=== PATIENT | female | born 1990 | race Caucasian/White ===

== ENCOUNTER 2017-02-25 07:19 | Emergency (ER) | payer SELFPAY ==
[~2017-02-25] VITALS: Ht 175.3 cm; Wt 49.9 kg
[2017-02-25] MEDS ORDERED: 0.9 % SODIUM CHLORIDE 10 ML DISP.SYRIN. IV PRN (07:30)
[2017-02-25 08:00] LABS: BASO % 1 % (0-3); EOS # 0.1 x10^3/uL (0.0-0.7); EOS % 1 % (0-3); HEMATOCRIT 41.3 % (36.0-47.0); HEMOGLOBIN 13.8 g/dL (12.0-15.5); LYMPH # 2.1 x10^3/uL (1.0-4.8); LYMPH % 25 % (24-48); MEAN CORPUSCULAR HEMOGLOBIN 30 pg (25-35); MEAN CORPUSCULAR HGB CONC 33 g/dL (31-37); MEAN CORPUSCULAR VOLUME 89 fL (79-100); MONO # 0.6 x10^3/uL (0.0-1.1); MONO % 7 % (0-9); NEUT # 5.8 x10^3uL (1.8-7.7); NEUT % 68 % (31-73); PLATELET COUNT 163 x10^3/uL (140-400); RED BLOOD COUNT 4.64 x10^6/uL (3.50-5.40); RED CELL DISTRIBUTION WIDTH 12.8 % (11.5-14.5); WHITE BLOOD COUNT 8.6 x10^3/uL (4.0-11.0)
[2017-02-25] MEDS ORDERED: IV NORMAL SALINE 1,000ML 1,000 ML IV SCH (08:00)
[2017-02-25 08:01] LABS: CALCIUM 8.6 mg/dL (8.5-10.1); CREATININE 0.8 mg/dL (0.6-1.0); GFR 88.1; POTASSIUM 3.3 mmol/L (3.5-5.1)
[2017-02-25] MEDS ORDERED: ONDANSETRON PF 4 MG/2 ML VIAL. IV ONE (08:20)
--- NOTE | 2017-02-25 08:42 | PHYS DOC ---
Past History Past Medical History: No Pertinent History Past Surgical History: No Surgical History Alcohol Use: None Drug Use: None Adult General Chief Complaint Chief Complaint: NAUSEA/VOMITING/DIARRHEA HPI HPI This is a pleasant 26-year-old female G 1998 whose last missed period was last year. She's been off of her Depo-Provera from us a urine still has not had a menstrual period. Patient presents today with abdominal pain as per lambert for almost a month in the lower suprapubic area without vaginal discharge or bleeding. She developed increased nausea and vomiting with meals in the last 2 weeks. She feels weak and dizzy secondary to the fact that she is not able to eat any food. She denies any back pain, fevers, chills, diarrhea or loose stool. She denies any dysuria urgency or frequency or other UTI symptoms. She's had a thin whitish discharge that is normal for her that is not changed. She admits she's had a history of sexual transmitted diseases gonorrhea and chlamydia several years ago and 2 episodes of BV. She is sexually active with one partner. She's had no sick contacts at home no trauma no travel outside the country. Differential diagnosis for lower abdominal pain includes but not limited to Acute pancreatitis. Appendicitis. Acute hepatitis. Peptic ulcer disease. Nonulcer dyspepsia. Irritable bowel disease. Functional gallbladder disorder. Sphincter of Oddi dysfunction. Diseases of the right kidney. Right-sided pneumonia. Vmvv-Ldzy-Asdpbx syndrome Subhepatic or intraabdominal abscess. Perforated viscus. Cardiac ischemia. Black spider envenomation Review of Systems Review of Systems Constitutional: Denies fever or chills [] Eyes: Denies change in visual acuity, redness, or eye pain [] HENT: Denies nasal congestion or sore throat [] Respiratory: Denies cough or shortness of breath [] Cardiovascular: No additional information not addressed in HPI [] GI: From early complains of lower abdominal pain with nausea and vomiting without diarrhea or bloody stools. : Denies dysuria or hematuria she has been complaining of a slight whitish discharge which is not new. Musculoskeletal: Denies back pain or joint pain [] Integument: Denies rash or skin lesions [] Neurologic: Denies headache, focal weakness or sensory changes [] Endocrine: Denies polyuria or polydipsia [] Current Medications Current Medications Current Medications Medications (Trade) Dose Ordered Sig/Devorah Start Time Stop Time Status Last Admin Dose Admin Ondansetron HCl (Zofran) 4 mg 1X ONCE 02/25/17 08:20 02/25/17 08:21 DC Sodium Chloride (Normal Saline Flush) 10 ml QSHIFT PRN 02/25/17 07:30 Allergies Allergies Allergies Coded Allergies Type Severity Reaction Last Updated Verified No Known Drug Allergies 02/25/17 No Physical Exam Physical Exam Auto signs noted within normal limits. Constitutional: Well developed, well nourished, no acute distress, non-toxic appearance. [] HENT: Normocephalic, atraumatic, bilateral external ears normal, oropharynx moist, no oral exudates, nose normal. [] Eyes: PERRLA, EOMI, conjunctiva normal, no discharge. [] Neck: Normal range of motion, no tenderness, supple, no stridor. [] Cardiovascular:Heart rate regular rhythm, no murmur [] Lungs & Thorax: Bilateral breath sounds clear to auscultation [] Abdomen: Bowel sounds normal, soft, no tenderness, no masses, no pulsatile masses. Patient's abdomen demonstrates no guarding rebound or organomegaly. No Mesa's sign and no McBurney's point tenderness to palpation. exam: Normal external female genitalia with no active vaginal lesions. She is a thin whitish discharge that is now not malodorous. There is no CMT no adnexal fullness or tenderness to palpation no active bleeding or discharge or tissue within the vaginal vault. Skin: Warm, dry, no erythema, no rash. [] Back: No tenderness, no CVA tenderness. [] Extremities: No tenderness, no cyanosis, no clubbing, ROM intact, no edema. [] Neurologic: Alert and oriented X 3, normal motor function, normal sensory function, no focal deficits noted. [] Psychologic: Affect normal, judgement normal, mood normal. [] Current Patient Data Vital Signs Vital Signs Date Time Temp Pulse Resp B/P (MAP) Pulse Ox O2 Delivery O2 Flow Rate FiO2 02/25/17 08:12 98.0 62 16 120/69 (86) 98 Room Air Lab Results Laboratory Tests Test 02/25/17 07:42 02/25/17 08:00 02/25/17 08:09 White Blood Count 8.6 x10^3/uL (4.0-11.0) Red Blood Count 4.64 x10^6/uL (3.50-5.40) Hemoglobin 13.8 g/dL (12.0-15.5) Hematocrit 41.3 % (36.0-47.0) Mean Corpuscular Volume 89 fL (79-100) Mean Corpuscular Hemoglobin 30 pg (25-35) Mean Corpuscular Hemoglobin Concent 33 g/dL (31-37) Red Cell Distribution Width 12.8 % (11.5-14.5) Platelet Count 163 x10^3/uL (140-400) Neutrophils (%) (Auto) 68 % (31-73) Lymphocytes (%) (Auto) 25 % (24-48) Monocytes (%) (Auto) 7 % (0-9) Eosinophils (%) (Auto) 1 % (0-3) Basophils (%) (Auto) 1 % (0-3) Neutrophils # (Auto) 5.8 x10^3uL (1.8-7.7) Lymphocytes # (Auto) 2.1 x10^3/uL (1.0-4.8) Monocytes # (Auto) 0.6 x10^3/uL (0.0-1.1) Eosinophils # (Auto) 0.1 x10^3/uL (0.0-0.7) Basophils # (Auto) 0.0 x10^3/uL (0.0-0.2) Maternal Serum HCG Beta Subunit 61177 mIU/mL (0-6) H Sodium Level 137 mmol/L (136-145) Potassium Level 3.3 mmol/L (3.5-5.1) L Chloride Level 101 mmol/L (98-107) Carbon Dioxide Level 24 mmol/L (21-32) Anion Gap 12 (6-14) Blood Urea Nitrogen 12 mg/dL (7-20) Creatinine 0.8 mg/dL (0.6-1.0) Estimated GFR (Cockcroft-Gault) 88.1 Glucose Level 75 mg/dL (70-99) Calcium Level 8.6 mg/dL (8.5-10.1) Lipase 82 U/L (73-393) Urine Collection Type Unknown Urine Color Fernanda Urine Clarity Cloudy Urine pH 6.0 Urine Specific [place] >=1.030 Urine Protein 30 mg/dl (NEG-TRACE) Urine Glucose (UA) Neg mg/dL (NEG) Urine Ketones (Stick) >=160 mg/dL (NEG) Urine Blood Neg (NEG) Urine Nitrite Neg (NEG) Urine Bilirubin Neg (NEG) Urine Urobilinogen Dipstick 0.2 mg/dL (0.2 mg/dL) Urine Leukocyte Esterase Neg (NEG) Urine RBC Rare /HPF (0-2) Urine WBC Rare /HPF (0-4) Urine Squamous Epithelial Cells Many /LPF Urine Bacteria Many /HPF (0-FEW) Urine Mucus Marked /LPF POC Urine HCG, Qualitative hcg positive (Negative) Laboratory Tests Test 02/25/17 07:42 02/25/17 08:09 White Blood Count 8.6 x10^3/uL (4.0-11.0) Red Blood Count 4.64 x10^6/uL (3.50-5.40) Hemoglobin 13.8 g/dL (12.0-15.5) Hematocrit 41.3 % (36.0-47.0) Mean Corpuscular Volume 89 fL (79-100) Mean Corpuscular Hemoglobin 30 pg (25-35) Mean Corpuscular Hemoglobin Concent 33 g/dL (31-37) Red Cell Distribution Width 12.8 % (11.5-14.5) Platelet Count 163 x10^3/uL (140-400) Neutrophils (%) (Auto) 68 % (31-73) Lymphocytes (%) (Auto) 25 % (24-48) Monocytes (%) (Auto) 7 % (0-9) Eosinophils (%) (Auto) 1 % (0-3) Basophils (%) (Auto) 1 % (0-3) Neutrophils # (Auto) 5.8 x10^3uL (1.8-7.7) Lymphocytes # (Auto) 2.1 x10^3/uL (1.0-4.8) Monocytes # (Auto) 0.6 x10^3/uL (0.0-1.1) Eosinophils # (Auto) 0.1 x10^3/uL (0.0-0.7) Basophils # (Auto) 0.0 x10^3/uL (0.0-0.2) Sodium Level 137 mmol/L (136-145) Potassium Level 3.3 mmol/L (3.5-5.1) L Chloride Level 101 mmol/L (98-107) Carbon Dioxide Level 24 mmol/L (21-32) Anion Gap 12 (6-14) Blood Urea Nitrogen 12 mg/dL (7-20) Creatinine 0.8 mg/dL (0.6-1.0) Estimated GFR (Cockcroft-Gault) 88.1 Glucose Level 75 mg/dL (70-99) Calcium Level 8.6 mg/dL (8.5-10.1) Lipase 82 U/L (73-393) POC Urine HCG, Qualitative hcg positive (Negative) EKG EKG [] Radiology/Procedures Radiology/Procedures [] Course & Med Decision Making Course & Med Decision Making Pertinent Labs and Imaging studies reviewed. (See chart for details) upon presentation pressure patient presents with a month-long history. Repeated pain and mild vaginal discharge. Discharge does not look like PID or cervicitis. At this point time patient needs to have ectopic ruled out as the cause of her abdominal pain. Her test is positive on arrival and her white blood cell count is normal at 8.6. At this point she'll have a pelvic ultrasound completed as well as a beta hCG and a blood typing done. Patient is hemodynamics stable and minimal pain she'll be offered fluids and Zofran as her labs are pending. Patient's ultrasound demonstrates clear IUP with her Quant greater and 43,000. Patient is felt markedly better with fluids and antiemetics here in the emergency department pelvic exam is unremarkable. Urinalysis shows some bacteria and some mild white blood cells she will be treated empirically as a UTI. Impression: Threatened miscarriage, UTI, subchorionic hemorrhage., Nausea and vomiting Disposition: PCP follow-up APPLICATION SECURITY ENGINEER evaluation. [] Dragon Disclaimer Dragon Disclaimer This chart was dictated in whole or in part using Voice Recognition software in a busy, high-work load, and often noisy Emergency Department environment. It may contain unintended and wholly unrecognized errors or omissions. Departure Departure: Impression: Primary Impression: Threatened miscarriage Additional Impressions: Nausea and vomiting UTI (urinary tract infection) Disposition: 01 HOME, SELF-CARE Condition: IMPROVED Referrals: PCP,NO (PCP) Patient Instructions: Nausea and Vomiting, Threatened Miscarriage, Urinary Tract Infection Additional Instructions: Please return for any new or increasing symptoms or if you have any questions concerns. I would advise a follow-up your APPLICATION SECURITY ENGINEER for reevaluation and continued management of your second . Scripts Acetaminophen (TYLENOL) 325 Mg Tablet 1-2 TAB PO QID, #30 TAB 2 Refills Prov: YRN SOSA MD 02/25/17 Ondansetron (ZOFRAN ODT) 8 Mg Tab.rapdis 4 MG PO TID for 10 Days Prov: YRN SOSA MD 02/25/17 Nitrofurantoin Monohyd/M-Cryst (MACROBID 100 MG CAPSULE) 100 Mg Capsule 1 CAP PO BID, #20 CAP Prov: YRN SOSA MD 02/25/17 Problem Qualifiers YRN SOSA MD Feb 25, 2017 08:41
[2017-02-25 09:00] LABS: BILIRUBIN,URINE NEG (NEG); CLARITY,URINE CLOUDY; COLOR,URINE AMBER; GLUCOSE,URINE NEG (NEG); NITRITE,URINE NEG (NEG); RBC,URINE RARE /HPF (0-2); UROBILINOGEN,URINE 0.2 mg/dL (0.2 mg/dL); WBC,URINE RARE /HPF (0-4)
[2017-02-25 09:01] LABS: BACTERIA,URINE MANY /HPF (0-FEW); SQUAMOUS EPITHELIAL CELL,UR MANY /LPF
--- NOTE | 2017-02-25 10:10 | RAD ---
Obstetrical ultrasound, 02/25/2017: History: Nausea and vomiting Transabdominal and transvaginal scans were obtained. The uterus contains a single gestational sac. The gestational sac contains a pole demonstrating a crown-rump length of 5 mm. This suggests a gestational age of 6 weeks and 2 days yielding a sonographic EDC of 10/17/2017. activity and heart motion are present. The heart rate was 118 bpm. There is an 8 x 19 mm elongated hypoechoic area along the margin of the gestational sac compatible with a small subchorionic hemorrhage. The ovaries are unremarkable. No free fluid is evident in the pelvis. IMPRESSION: 1. Single viable intrauterine fetus of 6-7 weeks gestational age. 2. Small subchorionic hemorrhage.
[2017-02-25] MEDS ORDERED: ACET325T9 PO (10:33)
[2017-02-25] MEDS ORDERED: ONDA8TAB12 PO (10:33)
[2017-02-25] MEDS ORDERED: NITR100C62 PO (10:33)
[2017-02-25 17:44] VITALS: BP 158/65
[2017-02-28 17:09] LABS: CHLAMYDIA PROBE Negative (Negative)
== END 2017-02-25 10:48 | disposition home or self-care (01) ==
LOC: ER 07:19
DX: O20.0 Threatened abortion (principal); O23.41 Unspecified infection of urinary tract in pregnancy, first trimester; R11.2 Nausea with vomiting, unspecified; Z3A.01 Less than 8 weeks gestation of pregnancy
CPT/HCPCS: 36415; 76801; 76817; 80048; 81001; 81025; 83690; 84702; 85027; 86900; 86901; 87086; 87491; 87591; 96361; 96374; 99285; J2405; Q0111; J7030

== ENCOUNTER 2017-03-11 09:34 | Emergency (ER) | payer OTHER ==
[~2017-03-11] VITALS: Ht 175.3 cm; Wt 53.1 kg
[~2017-03-11 09:34] MED LIST: ACET325T9 PO; NITR100C62 PO; ONDA8TAB12 PO
--- NOTE | 2017-03-11 10:16 | ED.ADGEN ---
Past History Past Medical History: No Pertinent History Past Surgical History: No Surgical History Alcohol Use: None Drug Use: None Adult General HPI HPI Patient is a 26-year-old woman, with an uncomplicated that occurred 5 years ago, who presents to the emergency department with complaint of persistent nausea and vomiting after running out of Zofran. Patient was seen in the emergency department last week, that time she was diagnosed with urinary tract infection, and found that she was with a single viable intrauterine , at roughly 6-7 weeks. Patient states that she has attempted to obtain an MOTOR VEHICLE LICENSE CLERK over the past week, and currently has an appointment to follow-up with an OB at [facility] next week. She states however that she cannot get in to see his physician sooner, after running out of Zofran yesterday has been persistently nauseous and hadd vomiting this morning. She states her symptoms were previously controlled with the Zofran, which was taking about twice a day. She states "I just can't wait until then". Patient is unclear if she took all of her antibiotics for the urine tract infection which she was prescribed previously. She denies any urinary complaints, any discharge or drainage vagina, any vaginal bleeding, any concerns for sexually transmitted infections, any injuries to the abdomen, abdominal pain, back pain or flank pain , any weakness, numbness, tingling, chest pain, shortness of breath, swelling extremities or other complaints. States that she is taking vitamins. Review of Systems Review of Systems Constitutional: Denies fever or chills [] Eyes: Denies change in visual acuity, redness, or eye pain [] HENT: Denies nasal congestion or sore throat [] Respiratory: Denies cough or shortness of breath [] Cardiovascular: No additional information not addressed in HPI [] GI: Denies abdominal pain, bloody stools or diarrhea, positive for nausea and vomiting. [] : Denies dysuria or hematuria [] Musculoskeletal: Denies back pain or joint pain [] Integument: Denies rash or skin lesions [] Neurologic: Denies headache, focal weakness or sensory changes [] Endocrine: Denies polyuria or polydipsia [] Current Medications Current Medications Current Medications Medications (Trade) Dose Ordered Sig/Devorah Start Time Stop Time Status Last Admin Dose Admin Cephalexin HCl (Keflex) 500 mg 1X ONCE 03/11/17 12:00 03/11/17 12:01 03/11/17 11:59 500 MG Ondansetron HCl (Zofran Odt) 4 mg 1X ONCE 03/11/17 10:45 03/11/17 10:46 DC 03/11/17 10:19 4 MG Allergies Allergies Allergies Coded Allergies Type Severity Reaction Last Updated Verified No Known Drug Allergies 02/25/17 No Physical Exam Physical Exam Constitutional: Well developed, well nourished, no acute distress, non-toxic appearance. [] HENT: Normocephalic, atraumatic, bilateral external ears normal, oropharynx moist, no oral exudates, nose normal. [] Eyes: PERRLA, EOMI, conjunctiva normal, no discharge. [] Neck: Normal range of motion, no tenderness, supple, no stridor. [] Cardiovascular:Heart rate regular rhythm, no murmur [] Lungs & Thorax: Bilateral breath sounds clear to auscultation, no wheezing, rhonchi, rales. No chest wall crepitus or tenderness. [] Abdomen: Bowel sounds normal, soft, no tenderness, no rebound, rigidity, no guarding, gravid abdomen, no masses, no pulsatile masses. [] Skin: Warm, dry, no erythema, no rash. [] Back: No tenderness, no CVA tenderness. [] Extremities: No tenderness, no cyanosis, no clubbing, ROM intact, no edema. [] Neurologic: Alert and oriented X 3, normal motor function, normal sensory function, no focal deficits noted. [] Psychologic: Affect normal, judgement normal, mood normal. [] Current Patient Data Vital Signs Vital Signs Date Time Temp Pulse Resp B/P (MAP) Pulse Ox O2 Delivery O2 Flow Rate FiO2 03/11/17 09:34 97.7 66 18 98 Room Air Lab Results Laboratory Tests Test 03/11/17 10:55 Urine Collection Type Unknown Urine Color Yellow Urine Clarity Cloudy Urine pH 8.0 Urine Specific [place] 1.015 Urine Protein Neg (NEG-TRACE) Urine Glucose (UA) Neg mg/dL (NEG) Urine Ketones (Stick) Neg mg/dL (NEG) Urine Blood Neg (NEG) Urine Nitrite Neg (NEG) Urine Bilirubin Neg (NEG) Urine Urobilinogen Dipstick 0.2 mg/dL (0.2 mg/dL) Urine Leukocyte Esterase Trace (NEG) Urine RBC Rare /HPF (0-2) Urine WBC 1-4 /HPF (0-4) Urine Squamous Epithelial Cells Many /LPF Urine Amorphous Sediment Present /HPF Urine Bacteria Many /HPF (0-FEW) Urine Mucus Mod /LPF EKG EKG Not indicated. [] Radiology/Procedures Radiology/Procedures Not indicated [] Course & Med Decision Making Course & Med Decision Making Pertinent Labs and Imaging studies reviewed. (See chart for details) Patient well-appearing, vital signs in the normal limits, complaining of nausea. She apparently has not filled prescription for previous antibiotic. Urinalysis obtained, reveals many bacteria, with no nitrates, however based on pressor status will treat. Patient received Zofran orally in the ED with good effect, states she is feeling much better, no further vomiting. She is tolerating by mouth fluids. Given first dose of Keflex in the ED without issue, and prescription for Keflex to be taken twice daily for the next 7 days. Instructed to follow-up with her MOTOR VEHICLE LICENSE CLERK as scheduled for a test of cure, also given clear and detailed return instructions with which she voiced understanding and agreement. Additionally patient is given prescription for Zofran to be used as needed as directed. Patient voiced understanding and agreement, discharged home in stable condition with plan and precautions and follow-up as above. Final Impression Final Impression [] Problems: Dragon Disclaimer Dragon Disclaimer This electronic medical record was generated, in whole or in part, using a voice recognition dictation system. Departure: Impression: Primary Impression: Urinary tract infection affecting Additional Impression: Nausea and vomiting Disposition: HOME, SELF-CARE Condition: IMPROVED Scripts Ondansetron Hcl (ZOFRAN) 4 Mg Tablet 4 MG PO PRN Q6-8HRS Y for NAUSEA, #20 Prov: SANDRA AVELAR DO 03/11/17 Cephalexin (KEFLEX) 500 Mg Capsule 1 CAP PO BID, #14 CAP Prov: SANDRA AVELAR DO 03/11/17 SANDRA AVELAR DO Mar 11, 2017 10:16
[2017-03-11] MEDS ORDERED: ONDANSETRON ODT 4 MG TAB.RAPDIS PO ONE (10:45)
[2017-03-11 11:22] LABS: AMORPHOUS SEDIMENT,UR PRESENT /HPF; BACTERIA,URINE MANY /HPF (0-FEW); BILIRUBIN,URINE NEG (NEG); CLARITY,URINE CLOUDY; COLOR,URINE YELLOW; GLUCOSE,URINE NEG (NEG); NITRITE,URINE NEG (NEG); RBC,URINE RARE /HPF (0-2); SQUAMOUS EPITHELIAL CELL,UR MANY /LPF; UROBILINOGEN,URINE 0.2 mg/dL (0.2 mg/dL)
[2017-03-11] MEDS ORDERED: ONDA4TAB7 PO (11:49)
[2017-03-11] MEDS ORDERED: CEPH-264 PO (11:49)
[2017-03-11] MEDS ORDERED: CEPHALEXIN 250 MG CAPSULE PO ONE (12:00)
[2017-03-11 12:02] VITALS: BP 103/53
== END 2017-03-11 12:04 | disposition home or self-care (01) ==
LOC: ER 09:34
DX: O23.41 Unspecified infection of urinary tract in pregnancy, first trimester (principal); Z3A.01 Less than 8 weeks gestation of pregnancy
CPT/HCPCS: 81001; 87086; 99284; Q0162

== ENCOUNTER 2018-06-10 19:35 | Emergency (ER) | payer OTHER ==
[~2018-06-10] VITALS: Ht 170.2 cm; Wt 53.1 kg
[~2018-06-10 19:35] MED LIST changes: +CEPH-264 PO; +ONDA4TAB7 PO
--- NOTE | 2018-06-10 19:43 | ED.ADGEN ---
Past History Past Medical History: No Pertinent History Past Surgical History: No Surgical History Alcohol Use: None Drug Use: None Adult General Chief Complaint Chief Complaint ".. My skin is itching..." [facility] HPI Patient is a 28 year old female who presents with new onset of rash and itching starting 4 days ago..... No history of changes in food, meds, soaps, exposures, or travel. She normally healthy. There is a history of possible change in detergents. Patient normally healthy. Up-to-date with vaccinations. Review of Systems Review of Systems Constitutional: Denies fever or chills [] Eyes: Denies change in visual acuity, redness, or eye pain [] HENT: Denies nasal congestion or sore throat [] Respiratory: Denies cough or shortness of breath [] Cardiovascular: No additional information not addressed in HPI [] GI: Denies abdominal pain, nausea, vomiting, bloody stools or diarrhea [] : Denies dysuria or hematuria [] Musculoskeletal: Denies back pain or joint pain [] Integument: Complains of pruritic rash Neurologic: Denies headache, focal weakness or sensory changes [] Endocrine: Denies polyuria or polydipsia [] All other systems were reviewed and found to be within normal limits, except as documented in this note. Family History Family History Noncontributory Current Medications Current Medications Current Medications Medications (Trade) Dose Ordered Sig/Devorah Start Time Stop Time Status Last Admin Dose Admin Acetaminophen (Tylenol) 1,000 mg 1X ONCE 06/10/18 20:00 06/10/18 20:05 DC 06/10/18 20:18 1,000 MG Albuterol Sulfate (Ventolin Hfa Inhaler) 2 puff 1X ONCE 06/10/18 20:00 06/10/18 20:05 DC 06/10/18 20:16 2 PUFF Famotidine (Pepcid) 20 mg 1X ONCE 06/10/18 20:15 06/10/18 20:16 DC 06/10/18 20:19 20 MG Ibuprofen (Motrin) 400 mg 1X ONCE 06/10/18 20:00 06/10/18 20:05 DC 06/10/18 20:17 400 MG Prednisone (Prednisone) 60 mg 1X ONCE 06/10/18 20:00 06/10/18 20:05 DC 06/10/18 20:18 60 MG Allergies Allergies Allergies Coded Allergies Type Severity Reaction Last Updated Verified No Known Drug Allergies 02/25/17 No Physical Exam Physical Exam Constitutional: Well developed, well nourished, elderly distress, non-toxic appearance. [] HENT: Normocephalic, atraumatic, bilateral external ears normal, oropharynx moist, no oral exudates, nose normal. [] Eyes: PERRLA, EOMI, conjunctiva normal, no discharge. [] Neck: Normal range of motion, no tenderness, supple, no stridor. [] Cardiovascular:Heart rate regular rhythm, no murmur [] Lungs & Thorax: Bilateral breath sounds clear to auscultation [] Abdomen: Bowel sounds normal, soft, no tenderness, no masses, no pulsatile masses. [] Skin: Warm, dry, , patchy erythemic rash. [] Back: No tenderness, no CVA tenderness. [] Extremities: No tenderness, no cyanosis, no clubbing, ROM intact, no edema. [] Neurologic: Alert and oriented X 3, normal motor function, normal sensory function, no focal deficits noted. [] Psychologic: Affect normal, judgement normal, mood normal. [] Current Patient Data Vital Signs Vital Signs Date Time Temp Pulse Resp B/P (MAP) Pulse Ox O2 Delivery O2 Flow Rate FiO2 06/10/18 20:25 88 22 114/71 (85) 98 Room Air 06/10/18 19:40 99.0 EKG EKG [] Radiology/Procedures Radiology/Procedures [] Course & Med Decision Making Course & Med Decision Making Pertinent Labs and Imaging studies reviewed. (See chart for details). Patient to try and identify cause of rash. Would return to previous detergent. Take Benadryl 25 mg 4 times a day. For now take prednisone 50 mg day for 5 days. Use MDI 2 puffs 4 times a day. Take Zantac 150 mg twice day. Follow-up primary care. Return if any concerns. [] Final Impression Final Impression 1. Ischemic rash-appears to be contact dermatitis Dragon Disclaimer Dragon Disclaimer This electronic medical record was generated, in whole or in part, using a voice recognition dictation system. TRUDY LUKE MD Jun 10, 2018 19:43
[2018-06-10] MEDS ORDERED: predniSONE 20 MG TABLET PO ONE (20:00)
[2018-06-10] MEDS ORDERED: ALBUTEROL SULFATE 8GM INHALER. INH ONE (20:00)
[2018-06-10] MEDS ORDERED: IBUPROFEN 400 MG TABLET. PO ONE (20:00)
[2018-06-10] MEDS ORDERED: ACETAMINOPHEN 500 MG TABLET PO ONE (20:00)
[2018-06-10] MEDS ORDERED: RANI150T21 PO (20:07)
[2018-06-10] MEDS ORDERED: PRED50TA PO (20:07)
[2018-06-10] MEDS ORDERED: FAMOTIDINE 20 MG TABLET PO ONE (20:15)
[2018-06-10 20:25] VITALS: BP 114/71
== END 2018-06-10 20:28 | disposition home or self-care (01) ==
LOC: ER 19:35
DX: L25.9 Unspecified contact dermatitis, unspecified cause (principal)
CPT/HCPCS: 94640; 99284; J7512; J7613

== ENCOUNTER → 2018-08-28 | Outpatient (CLI) | payer OTHER ==
[~2018-08-28] MED LIST changes: +PRED50TA PO; +RANI-376 PO
--- NOTE | 2018-08-29 09:03 | RAD ---
Indication: Neck pain TECHNIQUE: Multiple views of the cervical spine COMPARISON: None FINDINGS: The cervical spine demonstrates straightening. This could be due to muscle spasm or positioning. No compression deformity. Facet joints are in normal anatomic alignment. No evidence of degenerative disc disease or facet arthropathy. Visualized lung apices are clear. There is mild widening of the right atlantoaxial joint space. IMPRESSION: 1. Mild asymmetric widening of the right atlantoaxial joint space, nonspecific but can be evaluated with CT to rule out underlying fracture. Electronically signed by: Sergio Long DO (08/29/2018 8:58 AM) [id number]
== END | disposition home or self-care (01) ==
LOC: RAD 17:36
PROVIDERS: ATTEND Registered Nurse
DX: M54.2 Cervicalgia (principal)
CPT/HCPCS: 72040

== ENCOUNTER → 2018-09-04 | Outpatient (CLI) | payer OTHER ==
--- NOTE | 2018-09-04 13:07 | RAD ---
EXAM: Cervical spine CT without contrast. HISTORY: Pain. TECHNIQUE: Computed tomographic images of the cervical spine were obtained without contrast. Multiplanar reformatting was performed. *One or more of the following individualized dose reduction techniques were utilized for this examination: 1. Automated exposure control. 2. Adjustment of the mA and/or kV according to patient size. 3. Use of iterative reconstruction technique. COMPARISON: Radiographs dated 08/28/2018. FINDINGS: There is minimal anterolisthesis of C2 on C3, within physiologic limits. There is also slight asymmetry involving the right greater than left atlantoaxial space, within physiologic limits. The vertebral bodies are normal in height and the disc spaces are preserved. No suspicious lytic or sclerotic osseous lesion is seen. There is no fracture. There are multiple calcifications within the left parotid gland. No parotid mass is seen. There is no neck lymphadenopathy. There is a suspected hypoechoic nodule along the inferior right thyroid lobe measuring 1.9 cm in craniocaudal dimension. The lung apices are unremarkable. There is no cervical foraminal or central canal stenosis. IMPRESSION: 1. No acute finding or evidence of significant cervical foraminal or central canal stenosis. 2. Suspected right thyroid nodule. This can be assessed with a thyroid sonogram. Electronically signed by: Chery Altamirano MD (09/04/2018 1:02 PM) [id number]
== END | disposition home or self-care (01) ==
LOC: CT 11:14
PROVIDERS: ATTEND Registered Nurse
DX: R93.7 Abnormal findings on diagnostic imaging of other parts of musculoskeletal system (principal)
CPT/HCPCS: 72125

== ENCOUNTER → 2018-09-12 | Outpatient (CLI) | payer OTHER ==
[~2018-09-12] MED LIST changes: -RANI-376 PO; +RANI150T21 PO
--- NOTE | 2018-09-12 17:06 | RAD ---
Thyroid ultrasound, 09/12/2018: HISTORY: Thyroid nodule seen on CT scan The right lobe of the gland measures 5.1 x 1.4 x 1.2 cm while the left lobe of the gland measures 4.0 x 1.1 x 1.1 cm. There is a 1.4 cm nodule in the lower pole of the right lobe of the gland. It demonstrates a smooth hypoechoic rim. There is internal blood flow. It is predominately nearly isoechoic with a minimal small cystic component. It is wider than tall. No calcifications are seen. No other discrete thyroid nodule is evident. IMPRESSION: Small solid nodule in the lower pole of the right lobe of the gland as described above. The sonographic findings are considered to be mildly suspicious. Sonographic follow-up is suggested. Electronically signed by: Fernie Vega MD (09/12/2018 5:03 PM) [facility]
== END | disposition home or self-care (01) ==
LOC: US 11:17
PROVIDERS: ATTEND Registered Nurse
DX: E04.1 Nontoxic single thyroid nodule (principal)
CPT/HCPCS: 76536

== ENCOUNTER 2018-09-30 12:27 | Emergency (ER) | payer OTHER ==
[~2018-09-30] VITALS: Ht 170.2 cm; Wt 57.0 kg
[2018-09-30 12:35] VITALS: BP 137/91
--- NOTE | 2018-09-30 13:27 | PHYS DOC ---
Past History Past Medical History: No Pertinent History Past Surgical History: No Surgical History Alcohol Use: None Drug Use: None Adult General Chief Complaint Chief Complaint: SKIN PROBLEM HPI HPI Patient is a 28 year old female who presents with complaining of a skin problem. Patient states she has had lesions in her face for the last 2 months that did not get better with 4 times primary care physician visit. Patient denies drainage of pus or fever or chills and states she was diagnosed with acne but doesn't think she has acne. Review of Systems Review of Systems Constitutional: Denies fever or chills [] Eyes: Denies change in visual acuity, redness, or eye pain [] HENT: Denies nasal congestion or sore throat [] Respiratory: Denies cough or shortness of breath [] Cardiovascular: No additional information not addressed in HPI [] GI: Denies abdominal pain, nausea, vomiting, bloody stools or diarrhea [] : Denies dysuria or hematuria [] Musculoskeletal: Denies back pain or joint pain [] Integument: Denies rash, reports skin lesions [] Neurologic: Denies headache, focal weakness or sensory changes [] Endocrine: Denies polyuria or polydipsia [] All other systems were reviewed and found to be within normal limits, except as documented in this note. Allergies Allergies Allergies Coded Allergies Type Severity Reaction Last Updated Verified No Known Drug Allergies 09/30/18 No Physical Exam Physical Exam Constitutional: Well developed, well nourished, no acute distress, non-toxic appearance. [] HENT: Normocephalic, atraumatic Eyes: PERRLA, EOMI, conjunctiva normal, no discharge. [] Neck: Normal range of motion, no tenderness, supple, no stridor. [] Cardiovascular:Heart rate regular rhythm, no murmur [] Lungs & Thorax: Bilateral breath sounds clear to auscultation [] Skin: Warm, dry, no erythema, multiple superficial eschar of face that covered with cream Neurologic: Alert and oriented X 3, normal motor function, normal sensory function, no focal deficits noted. [] Psychologic: Affect normal, judgement normal, mood normal. [] Current Patient Data Vital Signs Vital Signs Date Time Temp Pulse Resp B/P (MAP) Pulse Ox O2 Delivery O2 Flow Rate FiO2 09/30/18 12:35 98.0 89 20 99 Room Air EKG EKG [] Radiology/Procedures Radiology/Procedures [] Course & Med Decision Making Course & Med Decision Making Patient informed to follow-up with his spring coiler hand or primary care physician regarding chronic skin lesion. Patient did not want to have Accu-Chek in ER. Dragon Disclaimer Dragon Disclaimer This electronic medical record was generated, in whole or in part, using a voice recognition dictation system. Departure Departure: Impression: Primary Impression: Acne Additional Impressions: Tobacco abuse Tobacco abuse counseling Disposition: HOME, SELF-CARE (at 1326) Condition: STABLE Referrals: SWATHI DWYER FISHER EEL-C (PCP) Patient Instructions: Skin Ulcer, Smoking Cessation, Tips For Success Additional Instructions: Follow-up with a spring coiler hand or primary care physician for chronic skin problem Problem Qualifiers ANALIA SAM MD Sep 30, 2018 13:27
== END 2018-09-30 13:44 | disposition home or self-care (01) ==
LOC: ER 12:27
DX: L70.9 Acne, unspecified (principal); Z72.0 Tobacco use; Z71.6 Tobacco abuse counseling
CPT/HCPCS: 99281

== ENCOUNTER → 2019-07-27 | Outpatient (CLI) | payer OTHER ==
[~2019-07-27] MED LIST changes: +RANI-376 PO; -RANI150T21 PO
--- NOTE | 2019-07-27 14:45 | RAD ---
Pelvic ultrasound HISTORY: Amenorrhea. Pelvic pain. Transabdominal scan: Ovaries cannot be visualized. Limited uterine evaluation. Transvaginal scan: Uterus measures 7.1 x 3.5 x 4.1 cm. Endometrial stripe is homogeneous and measures 4 mm in thickness. No significant endometrial fluid. Right ovary measures 3.7 x 1.7 x 3.9 cm. Multiple small follicles are identified. Intact blood supply to the right ovary. Left ovary measures 2.7 x 2.9 x 3.8 cm. Intact blood supply to the left ovary. Multiple small left ovarian follicles. Mild free pelvic fluid in the right adnexal region. IMPRESSION: 1. No significant sonographic abnormality of uterus or ovaries. 2. Mild free pelvic fluid in the right adnexal region. Electronically signed by: Gerald Chacon MD (07/27/2019 2:42 PM) [id number]
== END | disposition home or self-care (01) ==
LOC: US 11:28
PROVIDERS: ATTEND Registered Nurse
DX: N91.2 Amenorrhea, unspecified (principal); R10.2 Pelvic and perineal pain
CPT/HCPCS: 76830; 76856

== ENCOUNTER 2019-10-09 16:46 | Emergency (ER) | payer OTHER ==
[~2019-10-09] VITALS: Ht 170.2 cm; Wt 57.0 kg
[2019-10-09 17:00] VITALS: BP 137/103
[2019-10-09] MEDS ORDERED: METR500T PO (17:17)
[2019-10-09] MEDS ORDERED: AMOX500C PO (17:17)
--- NOTE | 2019-10-09 17:17 | PHYS DOC ---
Past History Past Medical History: No Pertinent History Past Surgical History: No Surgical History Alcohol Use: None Drug Use: None Adult General Chief Complaint Chief Complaint: BACK PAIN - NO INJURY HPI HPI Patient is a 29-year-old female who presents with complaint of sore throat for the last couple days that has been worsening. She also indicates that she has some lower back pain. She denies any urinary discomfort. Patient thinks that she may have bacterial vaginosis and states that she typically gets back pain when she gets BV. Patient is not aware of having had fever.[] Review of Systems Review of Systems Constitutional: Denies fever or chills [] HENT: Positive sore throat [] Respiratory: Denies cough or shortness of breath [] Cardiovascular: No additional information not addressed in HPI [] : Denies dysuria or hematuria [] Musculoskeletal: Complains of lower back pain [] Integument: Denies rash or skin lesions [] Neurologic: Denies headache, focal weakness or sensory changes [] Allergies Allergies Allergies Coded Allergies Type Severity Reaction Last Updated Verified No Known Drug Allergies 09/30/18 No Physical Exam Physical Exam Constitutional: Well developed, well nourished, no acute distress, non-toxic appearance. [] HENT: Normocephalic, atraumatic, bilateral external ears normal, there is tonsillar swelling with erythema and bilateral exudates. [] Eyes: PERRLA, EOMI, conjunctiva normal, no discharge. [] Neck: Normal range of motion, no tenderness, supple, with anterior cervical lymphadenopathy. [] Cardiovascular: Regular rate and rhythm[] Lungs & Thorax: Bilateral breath sounds clear to auscultation [] Abdomen: Bowel sounds normal, soft, no tenderness, no masses, no pulsatile masses. [] EKG EKG [] Radiology/Procedures Radiology/Procedures [] Course & Med Decision Making Course & Med Decision Making Pertinent Labs and Imaging studies reviewed. (See chart for details) [] Dragon Disclaimer Dragon Disclaimer This electronic medical record was generated, in whole or in part, using a voice recognition dictation system. Departure Departure: Impression: Primary Impression: Strep throat Additional Impression: Bacterial vaginosis Disposition: 01 HOME, SELF-CARE Condition: STABLE Referrals: SWATHI DWYERC (PCP) Patient Instructions: Bacterial Vaginosis, Strep Throat Scripts Metronidazole (FLAGYL) 500 Mg Tablet 1 TAB PO BID for infection, #14 TAB Prov: QUAN ORTEGA Jr. DO 10/09/19 Amoxicillin (AMOXICILLIN) 500 Mg Capsule 2 CAP PO BID for infection, #40 CAP Prov: QUAN ORTEGA Jr. DO 10/09/19 Problem Qualifiers QUAN ORTEGA Jr. DO Oct 09, 2019 17:17
== END 2019-10-09 17:47 | disposition home or self-care (01) ==
LOC: ER 16:46
DX: J02.0 Streptococcal pharyngitis (principal); N76.0 Acute vaginitis; B95.0 Streptococcus, group A, as the cause of diseases classified elsewhere; B96.89 Other specified bacterial agents as the cause of diseases classified elsewhere
CPT/HCPCS: 99283

== ENCOUNTER 2019-12-25 14:25 | Emergency (ER) | payer OTHER ==
[~2019-12-25] VITALS: Ht 170.2 cm; Wt 54.1 kg
[~2019-12-25 14:25] MED LIST changes: +AMOX500C PO; +METR500T PO
[2019-12-25 14:29] VITALS: BP 100/53
[2019-12-25] MEDS ORDERED: NAPR500T8 PO (14:45)
--- NOTE | 2019-12-25 14:45 | PHYS DOC ---
Past History Past Medical History: Other Additional Past Medical Histor: BACTERIAL VAGINOSIS Past Surgical History: No Surgical History Alcohol Use: None Drug Use: None General Adult EDM: Chief Complaint: UPPER EXTREMITY PAIN HPI: HPI: Patient is a 29-year-old female who presents with a left wrist injury after changing a tire on her car last night. She thinks she just overdid her wrist yesterday. She also has some pain at the tip of her right ring finger. She states she has been taking Motrin at home without much relief. She has not noticed any swelling to either area. There is no bruising to either area. [] Review of Systems: Review of Systems: Constitutional: Denies fever or chills Eyes: Denies change in visual acuity Musculoskeletal: Per HPI Integument: Denies rash Neurologic: Denies headache, focal weakness or sensory changes Psychiatric: Denies depression or anxiety Heart Score: Risk Factors: Risk Factors: DM, Current or recent (<one month) smoker, HTN, HLP, family history of CAD, obesity. Risk Scores: Score 0 - 3: 2.5% MACE over next 6 weeks - Discharge Home Score 4 - 6: 20.3% MACE over next 6 weeks - Admit for Clinical Observation Score 7 - 10: 72.7% MACE over next 6 weeks - Early Invasive Strategies Allergies: Allergies: Allergies Coded Allergies Type Severity Reaction Last Updated Verified No Known Drug Allergies 09/30/18 No Physical Exam: PE: Constitutional: Well developed, well nourished, no acute distress, non-toxic appearance. [] HENT: Normocephalic, atraumatic, bilateral external ears normal, oropharynx moist, no oral exudates, nose normal. [] Eyes: PERRLA, EOMI, conjunctiva normal, no discharge. [] Neck: Normal range of motion, no tenderness, supple, no stridor. [] Cardiovascular:Heart rate regular rhythm, no murmur [] Lungs & Thorax: Bilateral breath sounds clear to auscultation [] Abdomen: Bowel sounds normal, soft, no tenderness, no masses, no pulsatile masses. [] Skin: Warm, dry, no erythema, no rash. [] Back: No tenderness, no CVA tenderness. [] Extremities: Left wrist has full range of motion there is no deformity no swelling no erythema not quite sure I see anything at all that looks unusual. Also the right ring finger is very similar she has some redness around the nailbed which is not from an acute injury. [] Neurologic: Alert and oriented X 3, normal motor function, normal sensory function, no focal deficits noted. [] Psychologic: Anxious. [] EKG: EKG: [] Radiology/Procedures: Radiology/Procedures: [] Course & Med Decision Making: Course & Med Decision Making Pertinent Labs and Imaging studies reviewed. (See chart for details) [] Dragon Disclaimer: Dragon Disclaimer: This electronic medical record was generated, in whole or in part, using a voice recognition dictation system. Departure Departure: Impression: Primary Impression: Left wrist sprain Qualified Codes: S63.502A - Unspecified sprain of left wrist, initial encounter Disposition: 01 HOME/RESIDENCE PRIOR TO ADM Condition: STABLE Referrals: ZACHARY DOTSON (PCP) Patient Instructions: Joint Sprain, Wrist Exercises, Generic-SportsMed Scripts Naproxen (NAPROXEN) 500 Mg Tablet.dr 1 TAB PO Q12HR PRN for PAIN, #60 TAB 1 Refill Prov: BARTOLOME FLETCHER DO 12/25/19 BARTOLOME FLETCHER DO Dec 25, 2019 14:45
== END 2019-12-25 14:51 | disposition home or self-care (01) ==
LOC: ER 14:25
DX: S63.502A Unspecified sprain of left wrist, initial encounter (principal); X50.9XXA Other and unspecified overexertion or strenuous movements or postures, initial encounter; Y93.89 Activity, other specified; Y92.89 Other specified places as the place of occurrence of the external cause; Y99.8 Other external cause status
CPT/HCPCS: 99281; 99282

== ENCOUNTER 2021-01-06 20:52 | Emergency (ER) | payer OTHER ==
[~2021-01-06] VITALS: Ht 170.2 cm; Wt 61.0 kg
[~2021-01-06 20:52] MED LIST changes: +NAPR500T8 PO
[2021-01-06] MEDS ORDERED: ONDANSETRON PF 4 MG/2 ML VIAL. IVP ONE (21:15)
[2021-01-06] MEDS ORDERED: IV NORMAL SALINE 1,000ML 1,000 ML IV ONE (21:15)
[2021-01-06] MEDS ORDERED: FAMOTIDINE 20 MG/2 ML VIAL IVP ONE (21:15)
[2021-01-06] MEDS ORDERED: KETOROLAC 15 MG/ML VIAL. IVP ONE (21:15)
[2021-01-06 21:29] LABS: CLARITY,URINE CLOUDY; COLOR,URINE YELLOW
[2021-01-06 21:30] LABS: BILIRUBIN,URINE NEG (NEG); GLUCOSE,URINE NEG (NEG); NITRITE,URINE NEG (NEG); UROBILINOGEN,URINE 0.2 mg/dL (0.2 mg/dL)
[2021-01-06 21:32] LABS: BASO % 0 % (0-3); EOS # 0.1 x10^3/uL (0.0-0.7); EOS % 1 % (0-3); HEMATOCRIT 39.2 % (36.0-47.0); LYMPH # 2.1 x10^3/uL (1.0-4.8); LYMPH % 19 % (24-48); MEAN CORPUSCULAR HEMOGLOBIN 30 pg (25-35); MEAN CORPUSCULAR HGB CONC 33 g/dL (31-37); MEAN CORPUSCULAR VOLUME 90 fL (79-100); MONO # 0.7 x10^3/uL (0.0-1.1); MONO % 7 % (0-9); NEUT % 73 % (31-73); PLATELET COUNT 210 x10^3/uL (140-400); RED BLOOD COUNT 4.33 x10^6/uL (3.50-5.40); RED CELL DISTRIBUTION WIDTH 12.8 % (11.5-14.5); WHITE BLOOD COUNT 10.9 x10^3/uL (4.0-11.0)
[2021-01-06 21:33] LABS: BACTERIA,URINE MANY /HPF (0-FEW); SQUAMOUS EPITHELIAL CELL,UR OCC /LPF; WBC,URINE TNTC /HPF (0-4)
[2021-01-06] MEDS ORDERED: IOHEXOL 240 MG/ML 50ML VIAL. ONE (21:40)
[2021-01-06 21:42] LABS: CALCIUM 8.3 mg/dL (8.5-10.1); POTASSIUM 3.3 mmol/L (3.5-5.1)
[2021-01-06] MEDS ORDERED: IOHEXOL 300 MG/ML 75 ML VIAL. IV ONE (21:45)
[2021-01-06 21:48] LABS: ALBUMIN 3.4 g/dL (3.4-5.0); ALBUMIN/GLOBULIN RATIO 1.1 (1.0-1.7); MAGNESIUM 2.1 mg/dL (1.8-2.4); TOTAL BILIRUBIN 0.5 mg/dL (0.2-1.0); TOTAL PROTEIN 6.5 g/dL (6.4-8.2)
[2021-01-06] MEDS ORDERED: ONDA4TAB12 PO (21:58)
[2021-01-06] MEDS ORDERED: cefTRIAXone SODIUM 1 GM VIAL ONE (21:58)
[2021-01-06] MEDS ORDERED: CEPH500C PO (21:58)
--- NOTE | 2021-01-06 21:58 | PHYS DOC ---
Past History Past Medical History: Other Additional Past Medical Histor: BACTERIAL VAGINOSIS Past Surgical History: No Surgical History Smoking: Non-smoker Alcohol Use: None Drug Use: None General Adult EDM: Chief Complaint: ABDOMINAL PAIN HPI: HPI: 30-year-old female presents with report of right lower quadrant abdominal pain that started at 8 PM this evening. Patient reports it is constant and achy in nature. Reports some associated nausea. Denies . Denies fever or chills. Denies dysuria or hematuria. Denies vaginal bleeding or discharge. Review of Systems: Review of Systems: Constitutional: Denies fever or chills Eyes: Denies redness or eye pain HENT: Denies nasal congestion or sore throat Respiratory: Denies cough or shortness of breath Cardiovascular: Denies chest pain or palpitations GI: Reports abdominal pain and nausea; denies vomiting : Denies dysuria or hematuria Musculoskeletal: Denies back pain or joint pain Integument: Denies rash or skin lesions Neurologic: Denies headache, focal weakness or sensory changes Complete systems were reviewed and found to be within normal limits, except as documented in this note. Current Medications: Current Meds: Current Medications Medications (Trade) Dose Ordered Sig/Devorah Start Time Stop Time Status Last Admin Dose Admin Famotidine (Pepcid Vial) 20 mg 1X ONCE 01/06/21 21:15 01/06/21 21:20 DC 01/06/21 21:28 20 MG Iohexol (Omnipaque 240 Mg/ml) 50 ml STK-MED ONCE 01/06/21 21:40 01/06/21 21:41 DC Iohexol (Omnipaque 300 Mg/ml) 75 ml 1X ONCE 01/06/21 21:45 01/06/21 21:46 UNV Ketorolac Tromethamine (Toradol 15mg Vial) 15 mg 1X ONCE 01/06/21 21:15 01/06/21 21:21 DC 01/06/21 21:28 15 MG Ondansetron HCl (Zofran) 4 mg 1X ONCE 01/06/21 21:15 01/06/21 21:20 DC 01/06/21 21:29 4 MG Sodium Chloride 1,000 ml @ 1,000 mls/hr 1X ONCE 01/06/21 21:15 01/06/21 22:14 01/06/21 21:28 1,000 MLS/HR Allergies: Allergies: Allergies Coded Allergies Type Severity Reaction Last Updated Verified No Known Drug Allergies 09/30/18 No Physical Exam: PE: Constitutional: Well developed, well nourished, no acute distress, non-toxic appearance HENT: Normocephalic, atraumatic Eyes: Conjunctiva normal, no discharge Neck: Normal range of motion, no tenderness, supple Lungs & Thorax: No respiratory distress, equal chest rise and fall Abdomen: Soft, RLQ tenderness, no guarding/rebound tenderness Skin: Warm, dry, no erythema, no rash Back: No tenderness, no CVA tenderness Extremities: No tenderness, ROM intact, no edema Neurologic: Alert and oriented X 3, normal motor function, normal sensory function, no focal deficits noted Psychologic: Affect normal, judgment normal Current Patient Data: Labs: Laboratory Tests Test 01/06/21 20:59 01/06/21 21:15 01/06/21 21:25 Urine Collection Type Unknown Urine Color Yellow Urine Clarity Cloudy Urine pH 6.0 Urine Specific [place] >=1.030 Urine Protein 100 mg/dl (NEG-TRACE) Urine Glucose (UA) Neg mg/dL (NEG) Urine Ketones (Stick) Trace mg/dL (NEG) Urine Blood Small (NEG) Urine Nitrite Neg (NEG) Urine Bilirubin Neg (NEG) Urine Urobilinogen Dipstick 0.2 mg/dL (0.2 mg/dL) Urine Leukocyte Esterase Mod (NEG) Urine RBC 6-10 /HPF (0-2) Urine WBC Tntc /HPF (0-4) Urine Squamous Epithelial Cells Occ /LPF Urine Bacteria Many /HPF (0-FEW) White Blood Count 10.9 x10^3/uL (4.0-11.0) Red Blood Count 4.33 x10^6/uL (3.50-5.40) Hemoglobin 13.0 g/dL (12.0-15.5) Hematocrit 39.2 % (36.0-47.0) Mean Corpuscular Volume 90 fL (79-100) Mean Corpuscular Hemoglobin 30 pg (25-35) Mean Corpuscular Hemoglobin Concent 33 g/dL (31-37) Red Cell Distribution Width 12.8 % (11.5-14.5) Platelet Count 210 x10^3/uL (140-400) Neutrophils (%) (Auto) 73 % (31-73) Lymphocytes (%) (Auto) 19 % (24-48) L Monocytes (%) (Auto) 7 % (0-9) Eosinophils (%) (Auto) 1 % (0-3) Basophils (%) (Auto) 0 % (0-3) Neutrophils # (Auto) 8.0 x10^3uL (1.8-7.7) H Lymphocytes # (Auto) 2.1 x10^3/uL (1.0-4.8) Monocytes # (Auto) 0.7 x10^3/uL (0.0-1.1) Eosinophils # (Auto) 0.1 x10^3/uL (0.0-0.7) Basophils # (Auto) 0.0 x10^3/uL (0.0-0.2) POC Urine HCG, Qualitative hcg negative (Negative) Vital Signs: Vital Signs Date Time Temp Pulse Resp B/P (MAP) Pulse Ox O2 Delivery O2 Flow Rate FiO2 01/06/21 20:59 97.9 89 20 93/48 (63) 98 Room Air EKG: EKG: [] Radiology/Procedures: Radiology/Procedures: [] Heart Score: C/O Chest Pain: N/A Course & Med Decision Making: Course & Med Decision Making Pertinent Lab studies reviewed. (See chart for details) Patient presents with report of right lower quadrant abdominal pain with associated nausea. Cannot exclude acute appendicitis. Labs obtained and posted to chart. UA with signs of active infection. Empiric antibiotic initiated. CT imaging ordered however prior to obtaining CT imaging patient reports she has a issue with her current childcare and needs to leave AGAINST MEDICAL ADVICE. Patient advised of risks of leaving against medical advise including permanent disability and/or . Patient acknowledges understanding and is willing to take upon those risks. AMA paperwork signed. Patient advised to follow closely with PCP and to return to emergency department for any worsening of condition or further concern. Discussed findings and plan with patient, who acknowledges understanding and agreement. Uzielon Disclaimer: Dragon Disclaimer: This electronic medical record was generated, in whole or in part, using a voice recognition dictation system. Departure Departure: Impression: Primary Impression: Abdominal pain Qualified Codes: R10.31 - Right lower quadrant pain Additional Impressions: UTI (urinary tract infection) Qualified Codes: N30.01 - Acute cystitis with hematuria Left against medical advice Hypokalemia Disposition: 07 LEFT AGAINST MEDICAL ADVICE Condition: GUARDED Referrals: PCP,NO (PCP) Patient Instructions: Abdominal Pain, Possible Early Appendicitis, Discharge Against Medical Advice, Hypokalemia, Potassium Content of Foods, Urinary Tract Infection, [id number] Additional Instructions: You have elected to leave against medical advice prior to full laboratory data results and without obtaining CT imaging with concern for possible appendicitis. As such you have elected to take upon you the risks of leaving against medical advice including (but not limited to) permanent disability and/or . Please return for any worsening of symptoms or for further concern. Scripts Ondansetron (ONDANSETRON ODT) 4 Mg Tab.rapdis 1 TAB PO PRN Q6-8HRS PRN for NAUSEA, #16 TAB Prov: BIANCA GONZALEZ DO 01/06/21 Cephalexin (CEPHALEXIN) 500 Mg Capsule 1 CAP PO TID for UTI, #30 CAP Prov: BIANCA GONZALEZ DO 01/06/21 BIANCA GONZALEZ DO Jan 06, 2021 21:58
[2021-01-06 22:08] VITALS: BP 100/56
== END 2021-01-06 22:10 | disposition left against medical advice (07) ==
LOC: ER 20:52
DX: N30.01 Acute cystitis with hematuria (principal); E87.6 Hypokalemia
CPT/HCPCS: 36415; 80053; 81001; 81025; 83690; 83735; 85025; 87086; 96361; 96374; 96375; 99284; J0696; J1885; J2405; J3490; J7030